=== PATIENT | female | born 1965 | race Caucasian/White ===

== ENCOUNTER 2024-04-03 23:51 | Emergency (ER) | payer OTHER, SELFPAY ==
[2024-04-03 23:59] VITALS: BP 86/61
[2024-04-04 00:26] VITALS: BP 81/50
[2024-04-04 00:31] LABS: % Basophils 0.6 % (0-2); % Eosinophils 1.9 % (0-6); % Immature Granulocytes 0.5 % (0-0.5); % Lymphocytes 47.7 % (20.5-51.1); % Monocytes 5.7 % (1.7-9.3); % Neutrophils 43.6 % (42.2-75.2); Absolute Basophils 0.1 10^3/uL (0-0.2); Absolute Eosinophils 0.2 10^3/uL (0-0.7); Absolute Lymphocytes 3.9 10^3/uL (1.2-3.4); Absolute Monocytes 0.5 10^3/uL (0.1-0.6); Absolute Neutrophils 3.5 10^3/uL (1.4-6.5); Hematocrit 32.4 % (37.0-47.0); Hemoglobin 10.9 g/dL (12.0-16.0); Mean Corp Hgb Conc. 33.6 g/dL (33.0-37.0); Mean Corpuscular Hgb 29.9 pg (27.0-31.0); Mean Platelet Volume 10.5 fL (7.4-10.4); Nucleated Red Blood Cells % 0 %; Platelet Count 198 10^3/uL (130-400); Red Blood Cell Count 3.64 10^6/uL (4.20-5.40); Red Cell Dist. Width 14.8 % (11.5-14.5); White Blood Cell Count 8.1 10^3/uL (4.8-10.8)
[2024-04-04 00:40] VITALS: BP 88/59
[2024-04-04 00:40] LABS: ALT (SGPT) 27 U/L (0-35); AST (SGOT) 35 U/L (14-36); Albumin 2.7 g/dl (3.5-5.0); Alcohol 187 mg/dl; Alkaline Phosphatase 110 U/L (38-126); Blood Urea Nitrogen 11 mg/dl (7-17); Calcium 8.6 mg/dl (8.4-10.2); Carbon Dioxide 20 mmol/L (22-30); Chloride 110 mmol/L (98-107); Glucose 90 mg/dl (70-99); Potassium 3.7 mmol/L (3.5-5.1); Sodium 140 mmol/L (135-145); Total Bilirubin 0.2 mg/dl (0.2-1.3); Total Protein 5.3 g/dl (6.3-8.2); eGFR > 60.00
[2024-04-04 01:00] VITALS: BP 91/51
[2024-04-04 01:07] VITALS: BMI 22.5
--- NOTE | 2024-04-04 01:46 | ED.GENMED ---
History of Present Illness
General
Chief Complaint: Alcohol Problem
Source: patient, ambulance crew and half-way records
Exam Limitations: none
Time Seen by Provider: 04/04/24 00:19
Nursing documentation reviewed up to this point in time: agreed with
History of Present Illness
History of Present Illness:
Patient is a 58-year-old female who is at a local rehab facility and presents after supposedly drinking at least a third of a bottle of vodka possibly 1-1/3 bottles of vodka and then getting Xanax 0.5 mg. Patient's blood pressure was found to be
low and was sent to the emergency department. Patient has a history of peptic ulcer disease, chronic pain, type 2 diabetes mellitus with diabetic chronic kidney disease, alcohol abuse that supposedly in remission, unspecified encephalopathy, COPD,
iron deficiency anemia, coronary artery disease. Patient has no complaints at this time. Patient denies headache or neck pain. Patient denies chest pain, shortness of breath or palpitations. Patient denies any abdominal pain, nausea, vomiting,
diarrhea, melena or hematochezia. Patient denies any back or extremity pain. Patient denies any symptoms.
Past History
Past History
ED Past Medical History: CAD, COPD, Hypercholesterolemia, NIDDM, Renal failure and Other (Peptic ulcer disease, chronic pain, alcohol abuse, unspecified encephalopathy, iron deficiency anemia, bariatric surgery)
Social History
Living: half-way
Review of Systems
Review of Systems
All Other Systems: ROS reviewed and negative except as documented in HPI and ROS
Constitutional: Reports no symptoms
EENT: Reports no symptoms
Respiratory: Reports no symptoms
Cardiac: Reports no symptoms
ABD/GI: Reports no symptoms
: Reports no symptoms
Musculoskeletal: Reports no symptoms
Skin: Reports no symptoms
Neurological: Reports no symptoms
Hematologic/Lymphatic: Reports no symptoms
Phy Exam
Physical Exam
Physical Exam:
Physical Exam
General: No apparent distress, alert and appropriate, well nourished, well hydrated
HENT: Normocephalic and nontender, supple with no lymphadenopathy, no thyromegaly
Eyes: Clear sclera, conjuctiva without injection
Heart: Regular rhythm and rate. No S3, S4. Grade 2/6 holosystolic soft murmur heard best at the apex. No NVD
Lungs: No respiratory distress, no stridor, lung sounds clear and equal bilaterally, chest wall symmetrical and nontender
Abdomen: Soft, nontender, no organomegaly, BS good
Neuro: Alert and appropriate without focality
Skin: no rash
Psychiatric: well kept. interactive and cooperative
Extremities: No edema, cyanosis, tenderness
Scores
Withdrawal Assessment of Alcohol
Withdrawal Assessment Completed?: Not applicable
Course
Orders/Labs/Results
Orders:
Orders
04/04/24 00:22
Alcohol Urgent
Complete Blood Count/With Diff Urgent
Comprehensive Metabolic Panel Urgent
Abnormal Lab Results
04/04/24
00:22
RBC 3.64 L 10^6/uL
(4.20-5.40)
Hgb 10.9 L g/dL
(12.0-16.0)
Hct 32.4 L %
(37.0-47.0)
RDW 14.8 H %
(11.5-14.5)
MPV 10.5 H fL
(7.4-10.4)
Absolute Lymphs (auto) 3.9 H 10^3/uL
(1.2-3.4)
Chloride 110 H mmol/L
(98-107)
Carbon Dioxide 20 L mmol/L
(22-30)
Total Protein 5.3 L g/dl
(6.3-8.2)
Albumin 2.7 L g/dl
(3.5-5.0)
04/04/24 00:22
04/04/24 00:22
Vital Signs
Initial and Last Documented VS:
Initial Vital Signs
Temp Pulse Resp BP Pulse Ox
97.8 F 62 18 86/61 96
04/03/24 23:59 04/03/24 23:59 04/03/24 23:59 04/03/24 23:59 04/03/24 23:59
Last Documented Vital Signs
Temp Pulse Resp BP Pulse Ox
97.8 F 69 18 91/61 93
04/03/24 23:59 04/04/24 02:00 04/04/24 02:00 04/04/24 02:00 04/04/24 02:00
*Radiology
Radiology exam reviewed: other (na)
*Pulse Oximetry
Patient hypoxic: no
*EKG
Interpreted by ED Provider?: NA
*Quantitative Software Engineer Interpretation
Rate: Quantitative Software Engineer- N/A
*Critical Care Note
Total Time (30-74mins, 75-104mins- exclusive of procedures): Not Applicable
Update Note
Update Note:
Patient does appear to be intoxicated but without any acute findings. Patient has a history of anemia. Find any evidence of bleeding. Patient nutritionally is diminished with her albumin. Patient's alcohol level is elevated. Patient will be
discharged.
ED Attending Note
-
Portions of this chart may have been created with voice recognition software.� Occasional wrong word or��sound alike� substitutions may have occurred due to the inherent limitations of voice recognition software.
Discharge Plan
Departure
Patient Disposition: Longterm/SNF
Date of Disposition: 04/04/24
Time of Disposition: 01:53
Patient with high blood pressure during this ER visit?: No
Condition: Fair
Covid-19: Not Applicable
Discharge Problem:
Alcohol intoxication
Instructions: Alcohol Use Disorder (DC)
Referrals:
Malcolm Lee, DO [Family Provider] - Follow up in 2-3 days
Activity Restrictions/Additional Instructions:
Continue present medications and therapy. Patient is not allowed to have any alcohol.
Interventions
Interventions:
*Risk Screen - Suicide Last Done: 04/03/24 23:59
*General Assessment Last Done: 04/03/24 23:59
*Neglect/Abuse Screening Last Done: 04/03/24 23:59
ED- Fall Risk Assessment Last Done: 04/04/24 01:13
ED- Neurological Assessment Last Done: 04/04/24 01:13
ED-Psychological Assessment Last Done: 04/04/24 01:13
Discharge Date and Time
Print Language: GIBRALTARIAN
[2024-04-04 02:00] VITALS: BP 91/61
== END 2024-04-04 03:26 ==
LOC: EMR 23:51
PROVIDERS: Emergency Medicine; EMERGENCY PHYSICIAN Emergency Medicine; FAMILY PHYSICIAN Internal Medicine
DX: F10.129 Alcohol abuse with intoxication, unspecified (principal); I95.9 Hypotension, unspecified; I25.10 Atherosclerotic heart disease of native coronary artery without angina pectoris; E78.00 Pure hypercholesterolemia, unspecified; E11.22 Type 2 diabetes mellitus with diabetic chronic kidney disease; I12.9 Hypertensive chronic kidney disease with stage 1 through stage 4 chronic kidney disease, or unspecified chronic kidney disease; N18.9 Chronic kidney disease, unspecified; J44.9 Chronic obstructive pulmonary disease, unspecified; G89.29 Other chronic pain; D50.9 Iron deficiency anemia, unspecified; I25.2 Old myocardial infarction; Z98.84 Bariatric surgery status; Z87.11 Personal history of peptic ulcer disease; Z87.01 Personal history of pneumonia (recurrent); Z79.84 Long term (current) use of oral hypoglycemic drugs; Z88.0 Allergy status to penicillin; Z91.041 Radiographic dye allergy status
CPT/HCPCS: 99283; 80053; 82077; 85025

== ENCOUNTER 2024-04-10 21:19 | Emergency (ER) | payer OTHER, SELFPAY ==
[2024-04-10 21:58] LABS: Hematocrit 32.5 % (37.0-47.0); Hemoglobin 11.2 g/dL (12.0-16.0); Mean Corp Hgb Conc. 34.5 g/dL (33.0-37.0); Mean Corpuscular Hgb 30.8 pg (27.0-31.0); Mean Corpuscular Volume 89.3 fL (81.0-99.0); Mean Platelet Volume 9.9 fL (7.4-10.4); Platelet Count 165 10^3/uL (130-400); Red Blood Cell Count 3.64 10^6/uL (4.20-5.40); Red Cell Dist. Width 14.5 % (11.5-14.5); White Blood Cell Count 6.3 10^3/uL (4.8-10.8)
[2024-04-10 22:00] VITALS: BP 112/78
[2024-04-10 22:06] VITALS: BMI 21.9
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
[2024-04-10 22:23] LABS: % Basophils 0.3 % (0-2); % Eosinophils 2.7 % (0-6); % Immature Granulocytes 0.2 % (0-0.5); % Lymphocytes 50.2 % (20.5-51.1); % Monocytes 6.7 % (1.7-9.3); % Neutrophils 39.9 % (42.2-75.2); Absolute Eosinophils 0.2 10^3/uL (0-0.7); Absolute Lymphocytes 3.2 10^3/uL (1.2-3.4); Absolute Monocytes 0.4 10^3/uL (0.1-0.6); Absolute Neutrophils 2.5 10^3/uL (1.4-6.5); Nucleated Red Blood Cells % 0 %
[2024-04-10 22:41] LABS: ALT (SGPT) 15 U/L (0-35); AST (SGOT) 22 U/L (14-36); Albumin 2.7 g/dl (3.5-5.0); Alkaline Phosphatase 117 U/L (38-126); Blood Urea Nitrogen 14 mg/dl (7-17); Calcium 8.7 mg/dl (8.4-10.2); Carbon Dioxide 26 mmol/L (22-30); Chloride 106 mmol/L (98-107); Estimated Creatinine Clearance 85 ml/min; Glucose 84 mg/dl (70-99); Potassium 4.3 mmol/L (3.5-5.1); Sodium 137 mmol/L (135-145); Total Bilirubin 0.3 mg/dl (0.2-1.3); Total Protein 5.2 g/dl (6.3-8.2); eGFR > 60.00
[2024-04-10 22:42] LABS: Alcohol None Detected
[2024-04-10 23:00] VITALS: BP 104/68
[2024-04-11] VITALS: BP 107/79
[2024-04-11 01:00] VITALS: BP 121/76
--- NOTE | 2024-04-11 01:24 | ED.GENMED ---
History of Present Illness
General
Chief Complaint: Numbness
Source: patient
Exam Limitations: none
Time Seen by Provider: 04/11/24 01:14
History of Present Illness
History of Present Illness:
See MDM
Past History
Past History
ED Past Medical History: CAD, COPD, Hypercholesterolemia, NIDDM, Renal failure and Other (Peptic ulcer disease, chronic pain, alcohol abuse, unspecified encephalopathy, iron deficiency anemia, bariatric surgery)
Social History
Alcohol: Occasional
Living: senior care
Phy Exam
Physical Exam
Physical Exam:
See MDM
Course
Orders/Labs/Results
Orders:
Orders
04/10/24 21:34
Complete Blood Count/With Diff Urgent
04/10/24 22:17
Alcohol Urgent
Comprehensive Metabolic Panel Routine
Folate Routine
Comment: ADD ON
Vitamin B12 Routine
Comment: ADD ON
04/11/24 01:23
Add On- LAB Urgent
Tests Added?: thiamine, folic acid level
Oxycodone/Acetaminophen [Percocet 5/325] 1 tablet PO NOW STA
04/11/24 02:40
Ketorolac [Toradol] 30 mg IV NOW STA
Abnormal Lab Results
04/10/24 04/10/24
21:34 22:17
RBC 3.64 L 10^6/uL
(4.20-5.40)
Hgb 11.2 L g/dL
(12.0-16.0)
Hct 32.5 L %
(37.0-47.0)
Neutrophils % 39.9 L %
(42.2-75.2)
Total Protein 5.2 L g/dl
(6.3-8.2)
Albumin 2.7 L g/dl
(3.5-5.0)
04/10/24 21:34
08/30/24 22:17
Vital Signs
Initial and Last Documented VS:
Initial Vital Signs
Temp Pulse Resp
98.1 F 75 18
04/10/24 21:20 04/10/24 21:20 04/10/24 21:20
Last Documented Vital Signs
Temp Pulse Resp BP Pulse Ox
98.1 F 57 17 124/90 97
04/10/24 21:20 04/11/24 02:00 04/11/24 02:00 04/11/24 02:00 04/10/24 22:00
MDM/Problems Addressed
Differential Diagnosis Includes:
HPI and MDM Narrative:
58-year-old female presenting for generalized numbness and tingling. Patient states its from her forehead all the way down to her feet. Patient states this is new but nursing staff indicating this is a chronic issue. She states she is already on
gabapentin. She denies any recent falls. She denies headaches or weakness.
On exam, she is comfortable in bed. Her blood work shows no significant abnormalities to explain her symptoms. Will add on thiamine and folic acid given her alcohol history. Patient states she fell a few weeks ago and states her buttock hurts.
Patient requesting pain medicine
Physical exam
General: Well appearing and non-toxic
HEENT: protecting airway
Neck: appears supple
CV: No evidence of cyanosis
Resp: No accessory muscle use
Abd: Non-distended
Back: Mild sacral tenderness. No lumbar tenderness noted. Pelvis stable to compression
Extremities: No deformities
Neuro: alert. Sensation grossly intact from head to toe
Psych: Normal affect
Skin: Intact
Problems Addressed including Acute and Chronic Conditions affecting care:
1. Paresthesias
Acuity: acute on chronic
Prognosis: stable
Details: Electrolytes within normal limits. Will add on thiamine and folic acid
Otherwise discussed follow-up with neurology
Differential Diagnosis (but not limited to): Paresthesias, alcohol induced paresthesias, hypocalcemia
Testing considered: CT head but doubt intracranial pathology given that involves both sides of her body
Drug therapy (if applicable): OTC meds, please see d/c instruction regarding Rx drugs
Amount and/or Complexity of Data Reviewed
Clinical info obtained from: Patient
External data reviewed: N/A
Labs I independently reviewed (but not limited to): Electrolytes within normal limit
Radiology: N/A
Pulse Ox: not hypoxic
EKG independently reviewed: N/A
Fryline Attendant: N/A
Critical Care: N/A
Risk of Complication:
Social Determinants of health: Good social support
Discussed with other providers: N/A
Escalation of Care includes Admit/Obs: After being observed in the Emergency Department, pt stable for discharge.
Occasional wrong word or 'sound a like' substitutions may have occurred due to the inherent limitations of voice recognition software. Read the chart carefully and recognize, using context, where substitutions have occurred.
*Critical Care Note
Total Time (30-74mins, 75-104mins- exclusive of procedures): Not Applicable
ED Attending Note
-
Portions of this chart may have been created with voice recognition software.� Occasional wrong word or��sound alike� substitutions may have occurred due to the inherent limitations of voice recognition software.
Discharge Plan
Departure
Patient Disposition: Home (Routine Discharge)
Date of Disposition: 04/11/24
Time of Disposition: 03:21
Patient with high blood pressure during this ER visit?: No
Discharge Problem:
Paresthesia
Instructions: Paresthesia (DC)
Prescriptions:
No Action
atorvastatin 40 mg Tablet
40 mg PO HS
acetaminophen [Tylenol] 325 mg Tablet
650 mg PO Q6H PRN (Reason: temp >100.4/mild pain)
sucralfate 1 gram Tablet
1 g PO ACHS
ondansetron HCl [Zofran] 4 mg Tablet
4 mg PO Q6H PRN (Reason: nausea)
gabapentin 400 mg Capsule
400 mg PO BID
loperamide [Imodium A-D] 2 mg Tablet
2 mg PO Q8H PRN (Reason: diarrhea)
thiamine HCl (vitamin B1) 100 mg Tablet
100 mg PO DAILY
meclizine 12.5 mg Tablet
12.5 mg PO Q8HPRN PRN (Reason: dizziness)
melatonin 3 mg Tablet
3 mg PO HS
alprazolam [Xanax] 0.5 mg Tablet
0.5 mg PO TID
magnesium hydroxide [Milk of Magnesia] 400 mg/5 mL Suspension
400 mg PO DAILY PRN (Reason: if no BM 3 days)
bisacodyl 10 mg Suppository
10 mg [place] DAILY PRN (Reason: MOM ineffective)
pantoprazole 40 mg Tablet,Delayed Release (Dr/Ec)
40 mg PO BID
Rx Instructions:
twice daily before meals
ferrous sulfate [iron] 325 mg (65 mg iron) Tablet
325 mg PO BID
lidocaine 5 % Adhesive Patch,Medicated
1 patch TOPICAL DAILY
Rx Instructions:
apply to low back in morning, remove at HS
lidocaine 5 % Adhesive Patch,Medicated
1 patch TOPICAL DAILY
Rx Instructions:
apply to R hip in morning and remove in 12 hours
Fleet Enema 19-7 gram/118 mL Enema
118 ml [place] DAILYPRN PRN (Reason: [place] ineffective)
gabapentin 300 mg Capsule
300 mg PO DAILY
folic acid 1 mg Tablet
1 mg PO DAILY
midodrine 2.5 mg Tablet
7.5 mg PO AC
Rx Instructions:
hold sbp>125
sertraline 50 mg Tablet
50 mg PO DAILY
tiotropium bromide 18 mcg Capsule, W/Inhalation Device
1 cap INHALATION DAILY
cholecalciferol (vitamin D3) 25 mcg (1,000 unit) Tablet
50 mcg PO DAILY
potassium chloride 20 mEq Tablet Extended Release
20 meq PO DAILY
albuterol sulfate 90 mcg/actuation Aerosol Powdr Breath Activated
2 inh INHALATION Q4H PRN (Reason: wheezing)
Referrals:
Jase Ladd MD [Active] -
PRIVATE,PHYSICIAN [Family Provider] -
Activity Restrictions/Additional Instructions:
Please return for any worsening symptoms.
You may return at any time if you have further concerns.
Please follow up with your doctor at the first available appointment, preferably this week.
Please make an appointment with a neurologist for further nerve testing.
Thank you for choosing [facility].
Interventions
Interventions:
*Risk Screen - Suicide Last Done: 04/10/24 21:20
*General Assessment Last Done: 04/10/24 21:20
*Neglect/Abuse Screening Last Done: 04/10/24 21:20
ED- Fall Risk Assessment Last Done: 04/10/24 22:21
*ED COVID-19 Vaccine History Last Done: 04/10/24 22:06
ED- Neurological Assessment Last Done: 04/10/24 22:21
Discharge Date and Time
Print Language: CYMRO
[2024-04-11] MEDS: PERCOCET 5/325 1 TABLET PO (01:31)
[2024-04-11 02:00] VITALS: BP 124/90
[2024-04-11] MEDS: TORADOL 30 MG IV (02:44)
[2024-04-11 03:00] VITALS: BP 121/85
[2024-04-11 03:58] LABS: Folate > 20.0 ng/ml (2.76-20); Vitamin B12 303 pg/ml (239-931)
[2024-04-11 04:05] VITALS: BP 118/77
[2024-04-11 05:00] VITALS: BP 137/99
== END 2024-04-11 05:43 | disposition home or self-care (01) ==
LOC: EMR 21:19
PROVIDERS: EMERGENCY PHYSICIAN Student in an Organized Health Care Education/Training Program
DX: R20.2 Paresthesia of skin (principal)
CPT/HCPCS: 99284; 96374; 80053; 82077; 82607; 82746; 85025

== ENCOUNTER 2024-05-05 00:57 | Emergency (ER) | payer MEDICARE, OTHER, SELFPAY ==
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
[2024-05-05 01:12] VITALS: BMI 23.9
[2024-05-05 01:13] VITALS: BP 116/87
[2024-05-05] MEDS: NORCO 5/325 1 TABLET PO (02:00)
[2024-05-05 02:02] VITALS: BP 123/83
[2024-05-05 02:38] VITALS: BP 131/93
== END 2024-05-05 02:50 | disposition home or self-care (01) ==
LOC: EMR 00:57
PROVIDERS: EMERGENCY PHYSICIAN Emergency Medicine; FAMILY PHYSICIAN Internal Medicine
DX: M54.9 Dorsalgia, unspecified (principal); J44.9 Chronic obstructive pulmonary disease, unspecified; I25.10 Atherosclerotic heart disease of native coronary artery without angina pectoris; N18.9 Chronic kidney disease, unspecified; E11.22 Type 2 diabetes mellitus with diabetic chronic kidney disease
CPT/HCPCS: 99283; 72220; 73502; 73564

== ENCOUNTER 2024-08-13 09:08 | Emergency (ER) | payer MEDICARE, OTHER, SELFPAY ==
[2024-08-13] VITALS (10 sets, daily range): BP systolic 80–136; BP diastolic 65–91; BMI 23.2
--- NOTE | 2024-08-13 09:24 | ED.GENMED ---
History of Present Illness
General
Chief Complaint: Chest Pain
Source: patient
Time Seen by Provider: 08/13/24 09:14
History of Present Illness
History of Present Illness:
This patient is a 59-year-old female presents emergency department complaints of central chest pain that started about 15 minutes prior to presentation here. Pain was gradual in onset, and improved now but still present. She was given aspirin and
nitro on transport. She denies radiation of the pain, associated new back pain, neck pain, jaw pain, headache, dizziness, dyspnea, diaphoresis, nausea, vomiting. Patient reports chronic back pain for at least 6 weeks that she attributes to a fall,
located in the upper and lower back, and this is unchanged. She denies leg swelling or other complaints. There are no exacerbating relieving factors to her pain, and is without radiation.
Past History
Past History
ED Past Medical History: CAD, COPD, Hypercholesterolemia, NIDDM, Renal failure and Other (Peptic ulcer disease, chronic pain, alcohol abuse, unspecified encephalopathy, iron deficiency anemia, bariatric surgery)
Social History
Tobacco: Non-smoker
Alcohol: Occasional
Drug: None
Living: [facility]
Phy Exam
Physical Exam
Physical Exam:
GENERAL: Alert , in no apparent distress
EYE: pupils equal and reactive
NECK: Supple, no significant adenopathy.
ENT: o/p clr, mmm.
CARDIAC: Regular rate and rhythm .
LUNGS: Clear breath sounds bilaterally, no acute respiratory distress, no wheezes/rales/rhonchi
ABDOMEN: Soft, without focal tenderness, no r/g
NEUROLOGICAL: Alert and oriented, no focal neuro deficits
SKIN: Warm and dry, skin intact.
MUSCULOSKELETAL: No edema, well perfused.
PSYCH: Normal and appropriate interaction.
Scores
Heart Score for Chest Pain Patients
STEMI patient?: Not applicable
Course
Orders/Labs/Results
Orders:
Orders
08/13/24
Electrocardiogram (*1) Stat
Comment: A-DONE
08/13/24 09:12
Electrocardiogram (*1) Urgent
Reason for Study: Chest Pain
EKG- Treatment ONCE
08/13/24 09:27
CMP [Comprehensive Metabolic Panel] Urgent
Complete Blood Count/With Diff Urgent
Troponin I Urgent
CR Chest - 2 Views Urgent
Comment:
Reason For Exam: cp
08/13/24 12:18
Gabapentin [Neurontin] 400 mg PO NOW STA
08/13/24 12:20
Troponin I Urgent
Abnormal Lab Results
08/13/24
09:27
RBC 3.84 L 10^6/uL
(4.20-5.40)
Hgb 11.9 L g/dL
(12.0-16.0)
Hct 35.8 L %
(37.0-47.0)
Carbon Dioxide 31 H mmol/L
(22-30)
BUN 18 H mg/dl
(7-17)
Total Protein 6.2 L g/dl
(6.3-8.2)
08/13/24 09:27
08/13/24 09:27
Vital Signs
Initial and Last Documented VS:
Initial Vital Signs
Temp Pulse Resp BP Pulse Ox
97.8 F 74 20 89/67 99
08/13/24 09:10 08/13/24 09:10 08/13/24 09:10 08/13/24 09:10 08/13/24 09:10
Last Documented Vital Signs
Temp Pulse Resp BP Pulse Ox
97.8 F 51 17 136/87 99
08/13/24 09:10 08/13/24 13:45 08/13/24 13:45 08/13/24 13:30 08/13/24 13:45
*Critical Care Note
Total Time (30-74mins, 75-104mins- exclusive of procedures): Not Applicable
Update Note
Update Note:
Patient presents to the Emergency Department with ___chest pain
Number and Complexity of Problems Addressed at the Encounter
� Chronic conditions affecting care:
� Acute Exacerbation and/or Progression of Chronic Illness:
� Differential Diagnosis includes: But not limited to nonspecific chest pain, ACS, pleurisy, pneumothorax, etc.
Amount and/or Complexity of Data to be Reviewed and Analyzed
� I performed an independent evaluation of and my interpretation is:
EKG: Read by me, normal sinus rhythm, normal rate, normal axis, no ischemia
CT:
Xrays: Read by radiology NAD
Laboratory Studies: Mild anemia, troponin negative x 2
Other:
� Review of other/old records reveals: Prior ER visits reviewed by me, transfer paperwork briefly reviewed
� Clinical information was obtained by an independent historian:
� Prescriptions/Medications Considered but not given:
� Further testing considered but not performed:
Risk of Complications and/or Morbidity or Mortality of Patient Management
� Social determinants of health affecting care:
� Discussion with other providers (PCP, Hospitalists, Consultants, etc):
� Escalation of care including admission/observation vs risk of discharge considered: 1:11 PM patient remains comfortable here, workup here unremarkable. Patient appears in no distress. Discussed with patient importance of
follow-up and reasons return to the ER.
ED Attending Note
-
Portions of this chart may have been created with voice recognition software.� Occasional wrong word or��sound alike� substitutions may have occurred due to the inherent limitations of voice recognition software.
Discharge Plan
Departure
Patient Disposition: Home (Routine Discharge)
Date of Disposition: 08/13/24
Time of Disposition: 13:09
Patient with high blood pressure during this ER visit?: Yes
Condition: Good
Discharge Problem:
Chest pain
Instructions: Chest Pain PCP Follow Up, BLOOD PRESSURE
Prescriptions:
No Action
atorvastatin 40 mg Tablet
40 mg PO HS
acetaminophen [Tylenol] 325 mg Tablet
650 mg PO Q6H PRN (Reason: temp >100.4/mild pain)
sucralfate 1 gram Tablet
1 g PO ACHS
ondansetron HCl [Zofran] 4 mg Tablet
4 mg PO Q6H PRN (Reason: nausea)
gabapentin 400 mg Capsule
400 mg PO BID
loperamide [Imodium A-D] 2 mg Tablet
2 mg PO Q8H PRN (Reason: diarrhea)
thiamine HCl (vitamin B1) 100 mg Tablet
100 mg PO DAILY
meclizine 12.5 mg Tablet
12.5 mg PO Q8HPRN PRN (Reason: dizziness)
melatonin 3 mg Tablet
3 mg PO HS
alprazolam [Xanax] 0.5 mg Tablet
0.5 mg PO TID
magnesium hydroxide [Milk of Magnesia] 400 mg/5 mL Suspension
400 mg PO DAILY PRN (Reason: if no BM 3 days)
bisacodyl 10 mg Suppository
10 mg [place] DAILY PRN (Reason: MOM ineffective)
pantoprazole 40 mg Tablet,Delayed Release (Dr/Ec)
40 mg PO BID
Rx Instructions:
twice daily before meals
ferrous sulfate [iron] 325 mg (65 mg iron) Tablet
325 mg PO BID
lidocaine 5 % Adhesive Patch,Medicated
1 patch TOPICAL DAILY
Rx Instructions:
apply to low back in morning, remove at HS
lidocaine 5 % Adhesive Patch,Medicated
1 patch TOPICAL DAILY
Rx Instructions:
apply to R hip in morning and remove in 12 hours
Fleet Enema 19-7 gram/118 mL Enema
118 ml TN DAILYPRN PRN (Reason: TN ineffective)
gabapentin 300 mg Capsule
300 mg PO DAILY
folic acid 1 mg Tablet
1 mg PO DAILY
midodrine 2.5 mg Tablet
7.5 mg PO AC
Rx Instructions:
hold sbp>125
sertraline 50 mg Tablet
50 mg PO DAILY
tiotropium bromide 18 mcg Capsule, W/Inhalation Device
1 cap INHALATION DAILY
cholecalciferol (vitamin D3) 25 mcg (1,000 unit) Tablet
50 mcg PO DAILY
potassium chloride 20 mEq Tablet Extended Release
20 meq PO DAILY
albuterol sulfate 90 mcg/actuation Aerosol Powdr Breath Activated
2 inh INHALATION Q4H PRN (Reason: wheezing)
acetaminophen 500 mg Tablet
1,000 mg PO Q6H PRN (Reason: pain )
duloxetine 60 mg Capsule, Delayed Rel Sprinkle
60 mg PO DAILY
Referrals:
Malcolm Lee, DO [Family Provider] - Tomorrow
Activity Restrictions/Additional Instructions:
IF YOU DEVELOP SHORTNESS OF BREATH, INCREASING OR NEW PAIN, FEVER, OR OTHER WORRISOME SIGNS PLEASE RETURN TO THE ER IMMEDIATELY.
Interventions
Interventions:
*Risk Screen - Suicide Last Done: 08/13/24 09:10
*General Assessment Last Done: 08/13/24 09:10
*Neglect/Abuse Screening Last Done: 08/13/24 09:10
ED- Fall Risk Assessment Last Done: 08/13/24 09:10
*ED COVID-19 Vaccine History Last Done: 08/13/24 09:10
*Nursing Disposition Last Done: 08/13/24 15:17
ED- Cardiac Assessment Last Done: 08/13/24 09:10
Discharge Date and Time
Discharge Date/Time: 08/13/24 15:20
Print Language: VENEZUEL[place]
[2024-08-13 09:56] LABS: % Basophils 0.4 % (0-2); % Eosinophils 3.2 % (0-6); % Immature Granulocytes 0.3 % (0-0.5); % Lymphocytes 35.5 % (20.5-51.1); % Monocytes 6.8 % (1.7-9.3); % Neutrophils 53.8 % (42.2-75.2); Absolute Eosinophils 0.2 10^3/uL (0-0.7); Absolute Lymphocytes 2.5 10^3/uL (1.2-3.4); Absolute Monocytes 0.5 10^3/uL (0.1-0.6); Absolute Neutrophils 3.8 10^3/uL (1.4-6.5); Hematocrit 35.8 % (37.0-47.0); Hemoglobin 11.9 g/dL (12.0-16.0); Mean Corp Hgb Conc. 33.2 g/dL (33.0-37.0); Mean Corpuscular Volume 93.2 fL (81.0-99.0); Mean Platelet Volume 10.4 fL (7.4-10.4); Nucleated Red Blood Cells % 0 %; Platelet Count 173 10^3/uL (130-400); Red Blood Cell Count 3.84 10^6/uL (4.20-5.40); Red Cell Dist. Width 12.8 % (11.5-14.5); White Blood Cell Count 7.1 10^3/uL (4.8-10.8)
[2024-08-13 10:24] LABS: Troponin I < 0.012 ng/ml
[2024-08-13 10:25] LABS: ALT (SGPT) 25 U/L (0-35); AST (SGOT) 22 U/L (14-36); Albumin 3.6 g/dl (3.5-5.0); Alkaline Phosphatase 66 U/L (38-126); Blood Urea Nitrogen 18 mg/dl (7-17); Calcium 9.1 mg/dl (8.4-10.2); Carbon Dioxide 31 mmol/L (22-30); Chloride 101 mmol/L (98-107); Estimated Creatinine Clearance 56 ml/min; Glucose 84 mg/dl (70-99); Potassium 3.8 mmol/L (3.5-5.1); Sodium 138 mmol/L (135-145); Total Bilirubin 0.4 mg/dl (0.2-1.3); Total Protein 6.2 g/dl (6.3-8.2); eGFR > 60.00
[2024-08-13 13:02] LABS: Troponin I < 0.012 ng/ml
== END 2024-08-13 15:20 | disposition home or self-care (01) ==
LOC: EMR 09:08
PROVIDERS: EMERGENCY PHYSICIAN Emergency Medicine; FAMILY PHYSICIAN Internal Medicine
DX: R07.89 Other chest pain (principal); R03.0 Elevated blood-pressure reading, without diagnosis of hypertension; M54.50 Low back pain, unspecified; M54.6 Pain in thoracic spine; G89.29 Other chronic pain; I25.10 Atherosclerotic heart disease of native coronary artery without angina pectoris; E78.00 Pure hypercholesterolemia, unspecified; E11.22 Type 2 diabetes mellitus with diabetic chronic kidney disease; D50.9 Iron deficiency anemia, unspecified; J44.9 Chronic obstructive pulmonary disease, unspecified; Z98.84 Bariatric surgery status; Z87.11 Personal history of peptic ulcer disease; Z88.0 Allergy status to penicillin; Z91.041 Radiographic dye allergy status
CPT/HCPCS: 99284; 71046; 80053; 84484; 85025; 93005

== ENCOUNTER 2024-11-14 13:58 | Emergency (ER) | payer MEDICARE, OTHER, SELFPAY ==
[2024-11-14 14:01] VITALS: BP 112/76
[2024-11-14] MEDS: NORCO 5/325 1 TABLET PO (18:12)
--- NOTE | 2024-11-14 18:35 | ED.GENMED ---
History of Present Illness
General
Chief Complaint: Fall
Source: patient
Time Seen by Provider: 11/14/24 17:58
History of Present Illness
History of Present Illness:
59-year-old female with past medical history of ambulatory dysfunction, hypertension, hyperlipidemia, CAD status postacute NC with cardiac bypass, COPD presenting to the emergency department via EMS from [facility] where she is currently at for
rehab due to her ambulatory dysfunction when she sustained a fall while trying to get up off the toilet. Patient notes that she uses a walker and wheelchair to get around. Patient's current concerns are right knee and ankle pain although she notes
that this is a chronic condition and she has CRPS for which she used to follow with pain management about 6 months ago. She is also noting pain to her diffuse head and neck. Denies any use of anticoagulants. There is no loss consciousness,
vomiting, vision changes or any other concerns. Patient did not receive anything for pain prior to arrival.
Past History
Past History
ED Past Medical History: CAD, COPD, Hypercholesterolemia, NIDDM, Renal failure and Other (Peptic ulcer disease, chronic pain, alcohol abuse, unspecified encephalopathy, iron deficiency anemia, bariatric surgery)
ED Past Surgical History: Cardiac and Other
Social History
Tobacco: Non-smoker
Alcohol: Occasional
Drug: None
Personal: Other
Living: assisted
Review of Systems
Review of Systems
All Other Systems: ROS reviewed and negative except as documented in HPI and ROS
Phy Exam
Physical Exam
Physical Exam:
GENERAL: Alert , in no apparent distress, appears older than stated age
EYE: conjunctiva clear
NECK: Supple
ENT: o/p clr, mmm.
CARDIAC: Regular rate and rhythm
LUNGS: Clear breath sounds bilaterally, no acute respiratory distress, no wheezes/rales/rhonchi
NEUROLOGICAL: Alert and oriented
SKIN: Warm and dry, skin intact.
MUSCULOSKELETAL: well perfused. No deformities, no focal areas of tenderness palpation complaining of diffuse tenderness to the right knee when palpated, warm and well-perfused
PSYCH: Normal and appropriate interaction.
Course
Orders/Labs/Results
Orders:
Orders
11/14/24 15:33
CT Head W/o Iv Contrast Urgent
Comment:
Reason For Exam: fall w/ pain
11/14/24 18:08
Hydrocodone 5/APAP 325 [[place] 5/325] 1 tablet PO NOW STA
CR Ankle - Right Min 3 Views * Urgent
Comment:
Reason For Exam: fall, pain
CR Knee- Right 4 Or More View* Urgent
Comment:
Reason For Exam: fall, pain
11/14/24 18:19
CT Cervical Spine W/o Iv Contr Urgent
Comment:
Reason For Exam: fall, pain
11/14/24 18:32
Ibuprofen [Motrin] 600 mg PO NOW STA
Vital Signs
Initial and Last Documented VS:
Initial Vital Signs
Temp Pulse Resp BP Pulse Ox
97.7 F 78 16 112/76 99
11/14/24 14:01 11/14/24 14:01 11/14/24 14:01 11/14/24 14:01 11/14/24 14:01
Last Documented Vital Signs
Temp Pulse Resp BP Pulse Ox
97.7 F 78 18 93/66 100
11/14/24 14:01 11/14/24 19:40 11/14/24 19:40 11/14/24 19:40 11/14/24 19:40
MDM/Problems Addressed
Differential Diagnosis Includes:
Accidental fall, contusion, concussion, intracranial bleeding, cervical spine injury, minimal concern for fracture, suspect acute on chronic pain flare from injury
MDM/Problems Addressed:
59-year-old female presented to the ER via EMS from rehab for evaluation after she had a slip and fall while getting up from the toilet earlier this afternoon. Patient is in no acute distress and hemodynamically stable. Will obtain CT of the head
and cervical spine given her reported concerns as well as x-ray of the right foot and ankle. Patient previously was on Vicodin from pain management and will give her a dose of this as she is requesting something for pain. Anticipate discharge back
to rehab.
Chronic conditions affecting care: Other (CRPS and ambulatory dysfunction)
*Pulse Oximetry
Patient hypoxic: no
*Critical Care Note
Total Time (30-74mins, 75-104mins- exclusive of procedures): Not Applicable
Patient Management
Social determinants of health affecting care: Living situation
Escalation/DeEscalation of care consider admission/obs:
Patient's x-rays do not show any acute fracture. CTs are without any acute pathologies. At this time patient is stable for discharge back to her assisted for continued rehab and care.
ED Attending Note
-
Portions of this chart may have been created with voice recognition software.� Occasional wrong word or��sound alike� substitutions may have occurred due to the inherent limitations of voice recognition software.
Discharge Plan
Departure
Patient Disposition: [facility]/SNF
Date of Disposition: 11/14/24
Time of Disposition: 19:10
Patient with high blood pressure during this ER visit?: No
Discharge Problem:
Accidental fall, Ankle pain, right, Knee pain, right
Instructions: Preventing falls in adults
Prescriptions:
No Action
atorvastatin 40 mg Tablet
40 mg PO HS
acetaminophen [Tylenol] 325 mg Tablet
650 mg PO Q6H PRN (Reason: temp >100.4/mild pain)
sucralfate 1 gram Tablet
1 g PO ACHS
ondansetron HCl [Zofran] 4 mg Tablet
4 mg PO Q6H PRN (Reason: nausea)
gabapentin 400 mg Capsule
400 mg PO BID
loperamide [Imodium A-D] 2 mg Tablet
2 mg PO Q8H PRN (Reason: diarrhea)
thiamine HCl (vitamin B1) 100 mg Tablet
100 mg PO DAILY
meclizine 12.5 mg Tablet
12.5 mg PO Q8HPRN PRN (Reason: dizziness)
melatonin 3 mg Tablet
3 mg PO HS
alprazolam [Xanax] 0.5 mg Tablet
0.5 mg PO TID
magnesium hydroxide [Milk of Magnesia] 400 mg/5 mL Suspension
400 mg PO DAILY PRN (Reason: if no BM 3 days)
bisacodyl 10 mg Suppository
10 mg [place] DAILY PRN (Reason: MOM ineffective)
pantoprazole 40 mg Tablet,Delayed Release (Dr/Ec)
40 mg PO BID
Rx Instructions:
twice daily before meals
ferrous sulfate [iron] 325 mg (65 mg iron) Tablet
325 mg PO BID
lidocaine 5 % Adhesive Patch,Medicated
1 patch TOPICAL DAILY
Rx Instructions:
apply to low back in morning, remove at HS
lidocaine 5 % Adhesive Patch,Medicated
1 patch TOPICAL DAILY
Rx Instructions:
apply to R hip in morning and remove in 12 hours
Fleet Enema 19-7 gram/118 mL Enema
118 ml [place] DAILYPRN PRN (Reason: TX ineffective)
gabapentin 300 mg Capsule
300 mg PO DAILY
folic acid 1 mg Tablet
1 mg PO DAILY
midodrine 2.5 mg Tablet
7.5 mg PO AC
Rx Instructions:
hold sbp>125
sertraline 50 mg Tablet
50 mg PO DAILY
tiotropium bromide 18 mcg Capsule, W/Inhalation Device
1 cap INHALATION DAILY
cholecalciferol (vitamin D3) 25 mcg (1,000 unit) Tablet
50 mcg PO DAILY
potassium chloride 20 mEq Tablet Extended Release
20 meq PO DAILY
albuterol sulfate 90 mcg/actuation Aerosol Powdr Breath Activated
2 inh INHALATION Q4H PRN (Reason: wheezing)
acetaminophen 500 mg Tablet
1,000 mg PO Q6H PRN (Reason: pain )
duloxetine 60 mg Capsule, Delayed Rel Sprinkle
60 mg PO DAILY
Referrals:
UNKNOWN - PT DOES,NOT KNOW [Family Provider] -
Interventions
Interventions:
*Risk Screen - Suicide Last Done: 11/14/24 14:04
*Neglect/Abuse Screening Last Done: 11/14/24 14:04
ED-Musculoskeletal Assessment Last Done: 11/14/24 18:18
ED- Neurological Assessment Last Done: 11/14/24 18:18
ED-Skin Assessment Last Done: 11/14/24 18:18
Discharge Date and Time
Print Language: NORWEGIAN
[2024-11-14 19:40] VITALS: BP 93/66
== END 2024-11-14 23:54 ==
LOC: EMR 13:58
PROVIDERS: EMERGENCY PHYSICIAN Emergency Medicine
DX: M25.571 Pain in right ankle and joints of right foot (principal); M25.561 Pain in right knee; W01.0XXA Fall on same level from slipping, tripping and stumbling without subsequent striking against object, initial encounter; E11.9 Type 2 diabetes mellitus without complications; E78.00 Pure hypercholesterolemia, unspecified; I10 Essential (primary) hypertension; I25.10 Atherosclerotic heart disease of native coronary artery without angina pectoris; J44.9 Chronic obstructive pulmonary disease, unspecified
CPT/HCPCS: 99284; 70450; 72125; 73564; 73610

== ENCOUNTER 2024-12-10 19:52 | Emergency (ER) | payer MEDICARE, OTHER, SELFPAY ==
[2024-12-10 19:55] VITALS: BP 113/86
[2024-12-10 19:56] VITALS: BP 113/86; BMI 26.8
[2024-12-10 20:00] VITALS: BP 111/78
[2024-12-10 20:20] LABS: Hematocrit 34.6 % (37.0-47.0); Hemoglobin 11.9 g/dL (12.0-16.0); Mean Corp Hgb Conc. 34.4 g/dL (33.0-37.0); Mean Corpuscular Hgb 31.1 pg (27.0-31.0); Mean Corpuscular Volume 90.3 fL (81.0-99.0); Mean Platelet Volume 10.7 fL (7.4-10.4); Platelet Count 188 10^3/uL (130-400); Red Blood Cell Count 3.83 10^6/uL (4.20-5.40); Red Cell Dist. Width 12.5 % (11.5-14.5)
[2024-12-10 20:38] LABS: ALT (SGPT) 17 U/L (0-35); AST (SGOT) 20 U/L (14-36); Albumin 3.7 g/dl (3.5-5.0); Alkaline Phosphatase 75 U/L (38-126); Blood Urea Nitrogen 17 mg/dl (7-17); Calcium 9.2 mg/dl (8.4-10.2); Carbon Dioxide 26 mmol/L (22-30); Chloride 106 mmol/L (98-107); Estimated Creatinine Clearance 75 ml/min; Glucose 108 mg/dl (70-99); Potassium 4.6 mmol/L (3.5-5.1); Sodium 140 mmol/L (135-145); Total Bilirubin 0.7 mg/dl (0.2-1.3); Total Protein 6.5 g/dl (6.3-8.2); eGFR > 60.00
[2024-12-10 21:00] VITALS: BP 121/81
[2024-12-10 22:00] VITALS: BP 120/77
--- NOTE | 2024-12-10 22:59 | ED.GENMED ---
History of Present Illness
General
Chief Complaint: Abdominal Pain
Time Seen by Provider: 12/10/24 22:17
History of Present Illness
History of Present Illness:
59-year-old female with history of CAD, COPD, chronic pain, alcohol abuse, anemia presenting to the emergency department for abdominal pain and vomiting. Patient symptoms for the past few hours. Denies having this pain in the past. Denies any
changes in her stool. Denies fever, chest pain, difficulty breathing. Reports history of bariatric surgery. She was given Flexeril and Tylenol prior to arrival without improvement. Notes that her last episode of vomiting was about 5 hours ago.
Denies additional acute medical complaints
Past History
Past History
ED Past Medical History: CAD, COPD, Hypercholesterolemia, NIDDM, Renal failure and Other (Peptic ulcer disease, chronic pain, alcohol abuse, unspecified encephalopathy, iron deficiency anemia, bariatric surgery)
ED Past Surgical History: Cardiac and Other
Social History
Tobacco: Non-smoker
Alcohol: Occasional
Drug: None
Personal: Other
Living: [facility]
Phy Exam
Physical Exam
Physical Exam:
General: Well-appearing, no clinical signs of dehydration, nontoxic and in no acute distress
HEENT: protecting airway
Neck: appears supple
CV: Normal heart rate, regular rhythm
Resp: No accessory muscle use, no increased work of breathing
Abd: Soft and non-distended, generalized tenderness without rebound or guarding
Extremities: No deformities, no swelling
Neuro: alert, no focal neurologic deficit
: deferred
Rectal: deferred
Psych: Normal affect
Skin: Intact
Course
Orders/Labs/Results
Orders:
Orders
12/10/24 20:08
CMP [Comprehensive Metabolic Panel] Urgent
Complete Blood Count/No Diff Urgent
Lipase Urgent
Comment: ADD ON
12/10/24 22:57
0.9% Sodium Chloride 1000 ml [Nss] 1,000 ml IV BOLUS
Morphine Sulfate 4 mg IV NOW STA
Ondansetron Injectable [Zofran] 4 mg IV NOW STA
12/10/24 23:01
CT Abd/pel Without Iv Or Oral Urgent
Comment:
Reason For Exam: generalized pain and vomiting
12/10/24 23:09
Add On- LAB Urgent
Tests Added?: lipase
12/11/24 01:48
Pantoprazole [Protonix IV] 40 mg IV NOW STA
12/11/24 01:49
Sterile Water [Sterile Water For Injection] 10 ml .ROUTE .STK-MED ONE
Abnormal Lab Results
12/10/24
20:08
RBC 3.83 L 10^6/uL
(4.20-5.40)
Hgb 11.9 L g/dL
(12.0-16.0)
Hct 34.6 L %
(37.0-47.0)
MCH 31.1 H pg
(27.0-31.0)
MPV 10.7 H fL
(7.4-10.4)
Glucose 108 H mg/dl
(70-99)
12/10/24 20:08
12/10/24 20:08
Vital Signs
Initial and Last Documented VS:
Initial Vital Signs
BP Pulse Ox
113/86 98
12/10/24 19:55 12/10/24 19:55
Last Documented Vital Signs
Temp Pulse Resp BP Pulse Ox
97.9 F 79 20 138/87 95
12/10/24 23:45 12/10/24 23:45 12/10/24 19:56 12/11/24 01:00 12/11/24 01:00
MDM/Problems Addressed
MDM/Problems Addressed:
59-year-old female with past medical history of CAD, COPD, chronic pain, alcohol abuse, anemia presenting for diffuse abdominal pain with vomiting. Vital signs on arrival are normal.
On exam patient is resting comfortably, no active emesis. Diffuse nonfocal on exam. Patient does have reported history of chronic pain, as well as alcohol abuse. Could potentially be related to chronic underlying issues. However, given history
of bariatric surgery with vomiting, we will proceed with CT abdominal imaging. Labs obtained prior to my assessment, no leukocytosis. Anemia has baseline. Will add lipase. Will treat with IV fluids, morphine, Zofran and reassess for improvement
01:50 -CT shows evidence of enteritis and gastritis, otherwise no significant pathology. On reassessment, patient remained stable. Last episode of vomiting was prior to arrival. At this time feel stable for discharge with outpatient supportive
therapy. Patient tolerated p.o. without difficulty. Return precautions discussed and patient verbalized understanding
*Critical Care Note
Total Time (30-74mins, 75-104mins- exclusive of procedures): Not Applicable
ED Attending Note
-
Portions of this chart may have been created with voice recognition software.� Occasional wrong word or��sound alike� substitutions may have occurred due to the inherent limitations of voice recognition software.
Discharge Plan
Departure
Patient Disposition: Home (Routine Discharge)
Date of Disposition: 12/11/24
Time of Disposition: 02:00
Patient with high blood pressure during this ER visit?: No
Condition: Good
Discharge Problem:
Enteritis, Gastritis, Nausea & vomiting
Instructions: Viral gastroenteritis in adults, Nausea and Vomiting, Adult (DC), Gastritis (DC)
Prescriptions:
No Action
atorvastatin 40 mg Tablet
40 mg PO HS
acetaminophen [Tylenol] 325 mg Tablet
650 mg PO Q6H PRN (Reason: temp >100.4/mild pain)
sucralfate 1 gram Tablet
1 g PO ACHS
ondansetron HCl [Zofran] 4 mg Tablet
4 mg PO Q6H PRN (Reason: nausea)
gabapentin 400 mg Capsule
400 mg PO BID
loperamide [Imodium A-D] 2 mg Tablet
2 mg PO Q8H PRN (Reason: diarrhea)
thiamine HCl (vitamin B1) 100 mg Tablet
100 mg PO DAILY
meclizine 12.5 mg Tablet
12.5 mg PO Q8HPRN PRN (Reason: dizziness)
melatonin 3 mg Tablet
3 mg PO HS
alprazolam [Xanax] 0.5 mg Tablet
0.5 mg PO TID
magnesium hydroxide [Milk of Magnesia] 400 mg/5 mL Suspension
400 mg PO DAILY PRN (Reason: if no BM 3 days)
bisacodyl 10 mg Suppository
10 mg [place] DAILY PRN (Reason: MOM ineffective)
pantoprazole 40 mg Tablet,Delayed Release (Dr/Ec)
40 mg PO BID
Rx Instructions:
twice daily before meals
ferrous sulfate [iron] 325 mg (65 mg iron) Tablet
325 mg PO BID
lidocaine 5 % Adhesive Patch,Medicated
1 patch TOPICAL DAILY
Rx Instructions:
apply to low back in morning, remove at HS
lidocaine 5 % Adhesive Patch,Medicated
1 patch TOPICAL DAILY
Rx Instructions:
apply to R hip in morning and remove in 12 hours
Fleet Enema 19-7 gram/118 mL Enema
118 ml [place] DAILYPRN PRN (Reason: ME ineffective)
gabapentin 300 mg Capsule
300 mg PO DAILY
folic acid 1 mg Tablet
1 mg PO DAILY
midodrine 2.5 mg Tablet
7.5 mg PO AC
Rx Instructions:
hold sbp>125
sertraline 50 mg Tablet
50 mg PO DAILY
tiotropium bromide 18 mcg Capsule, W/Inhalation Device
1 cap INHALATION DAILY
cholecalciferol (vitamin D3) 25 mcg (1,000 unit) Tablet
50 mcg PO DAILY
potassium chloride 20 mEq Tablet Extended Release
20 meq PO DAILY
albuterol sulfate 90 mcg/actuation Aerosol Powdr Breath Activated
2 inh INHALATION Q4H PRN (Reason: wheezing)
acetaminophen 500 mg Tablet
1,000 mg PO Q6H PRN (Reason: pain )
duloxetine 60 mg Capsule, Delayed Rel Sprinkle
60 mg PO DAILY
Referrals:
Malcolm Lee, DO [Family Provider] -
Activity Restrictions/Additional Instructions:
You were seen in the emergency department for nausea and vomiting
You were found to have inflammation to your bowel, consistent with a gastroenteritis. Please continue to orally hydrate practice a bland diet.
Please follow-up closely with your primary care physician.
Return to the emergency department for any worsening of your symptoms, or any development of chest pain, difficulty breathing, abdominal pain with persistent vomiting and inability to tolerate food or liquid by mouth (concern for dehydration),
weakness, headache or confusion, fever greater than 100.4, or any additional symptoms that are concerning to you.
Thank you for choosing [facility].
Interventions
Interventions:
*Risk Screen - Suicide Last Done: 12/10/24 19:56
*General Assessment Last Done: 12/10/24 19:56
*Neglect/Abuse Screening Last Done: 12/10/24 19:56
*ED- Fall Risk Assessment Last Done: 12/10/24 19:56
*ED COVID-19 Vaccine History Last Done: 12/10/24 21:54
SZ-Dijrhe-Vuzilehptn Assessment Last Done: 12/10/24 21:54
Discharge Date and Time
Print Language: [email or web address]
[2024-12-10 23:00] VITALS: BP 138/84
[2024-12-10] MEDS: ZOFRAN 4 MG IV (23:09)
[2024-12-10] MEDS: MORPHINE SULFATE 4 MG IV (23:09)
[2024-12-10] MEDS: NSS 1000 IV (23:09)
[2024-12-10 23:43] LABS: Lipase 43 U/L (23-300)
[2024-12-11 01:00] VITALS: BP 138/87
[2024-12-11] MEDS: PROTONIX IV 40 MG IV (01:54)
[2024-12-11 02:00] VITALS: BP 144/87
[2024-12-11 03:40] VITALS: BP 120/89
== END 2024-12-11 03:50 ==
LOC: EMR 19:52
PROVIDERS: EMERGENCY PHYSICIAN Student in an Organized Health Care Education/Training Program; FAMILY PHYSICIAN Internal Medicine
DX: K52.9 Noninfective gastroenteritis and colitis, unspecified (principal); K29.70 Gastritis, unspecified, without bleeding; E11.9 Type 2 diabetes mellitus without complications; E78.00 Pure hypercholesterolemia, unspecified; I25.10 Atherosclerotic heart disease of native coronary artery without angina pectoris; J44.9 Chronic obstructive pulmonary disease, unspecified; G89.29 Other chronic pain; Z98.84 Bariatric surgery status
CPT/HCPCS: 96374; 96375; 96361; 99284; 74176; 80053; 83690; 85027